=== PATIENT | male | born 1980 | race Hispanic/Latino ===

== ENCOUNTER 2025-07-08 07:46 | Outpatient (CLI) | payer BC ==
[2025-07-08] MEDS ORDERED: Iopamidol 370 76% 100 ML VIAL ONE (12:37)
== END 2025-07-08 07:47 | disposition home or self-care (01) ==
LOC: CT 07:46
PROVIDERS: ATTEND Internal Medicine Hematology & Oncology
DX: C64.1 Malignant neoplasm of right kidney, except renal pelvis (principal)
CPT/HCPCS: 71260; 74177; Q9967